=== PATIENT | male | born 1950 | race African-American/Black ===

== ENCOUNTER 2017-10-15 23:34 | Inpatient (IN) | payer MEDICARE, OTHER ==
[~2017-10-15] VITALS: Ht 170.2 cm; Wt 98.9 kg
[~2017-10-15 23:34] MED LIST: ASPIR 8181 MG ORAL; DILANTIN; DOCUSATE SODIU100 MG ORAL; FAMOTIDINE; LAMOTRIGINE; LOSARTAN; MONTELUKAST; SEROQUEL; SIMVASTATIN; TRAMADOL; VICODIN 5-5001 EACH ORAL
[2017-10-16] MEDS ORDERED: Albuterol ud Inhalation HHN ONE
[2017-10-16] MEDS ORDERED: Aspirin Baby 81mg ORAL ONE
[2017-10-16 00:44] LABS: BASOPHILS % (AUTO) 1.6 % (0.0-2.0); HEMATOCRIT 38.6 % (42.0-52.0); HEMOGLOBIN 12.9 G/DL (14.2-18.0); LYMPHOCYTES % (AUTO) 52.3 % (20.0-45.0); MEAN CORPUSCULAR VOLUME 91 FL (80-99); MONOCYTES % (AUTO) 11.5 % (1.0-10.0); NEUTROPHILS % (AUTO) 30.6 % (45.0-75.0); PLATELET COUNT 204 K/UL (150-450); RED BLOOD COUNT 4.23 M/UL (4.70-6.10); RED CELL DISTRIBUTION WIDTH 14.9 % (11.6-14.8); WHITE BLOOD COUNT 4.6 K/UL (4.8-10.8)
[2017-10-16 00:58] LABS: ANION GAP 11 mmol/L (5-15); BLOOD UREA NITROGEN 8 mg/dL (7-18); CALCIUM 8.5 MG/DL (8.5-10.1); CARBON DIOXIDE 23 MMOL/L (21-32); CHLORIDE 107 MMOL/L (98-107); CREATININE 1.1 MG/DL (0.55-1.30); POTASSIUM 3.3 MMOL/L (3.5-5.1); SODIUM 141 MMOL/L (136-145)
[2017-10-16 01:11] LABS: ALANINE AMINOTRANSFERASE 15 U/L (12-78); ALBUMIN 2.9 G/DL (3.4-5.0); ALBUMIN/GLOBULIN RATIO 0.7 (1.0-2.7); ALKALINE PHOSPHATASE 55 U/L (46-116); ASPARTATE AMINO TRANSFERASE 19 U/L (15-37); BILIRUBIN,TOTAL 0.2 MG/DL (0.2-1.0); CKMB 0.5 NG/ML (0.0-3.6); CREATINE KINASE 157 U/L (26-308)
[2017-10-16] MEDS ORDERED: Albuterol/Ipratropium 3ml neb HHN ONE (01:30)
[2017-10-16] MEDS ORDERED: Solu-MEDROL 125mg Inj IVP ONE (01:30)
[2017-10-16 03:11] VITALS: BP 115/61
[2017-10-16 04:00] VITALS: BP 113/86
[2017-10-16] MEDS: Solu-MEDROL 40mg Inj IVP SCH ×3 (05:33→21:05)
--- NOTE | 2017-10-16 05:34 | Emergency Room Report ---
History of Present Illness General Chief Complaint: Dyspnea/Respdistress Source: Patient Present Illness HPI Patient is a 67-year-old male brought in by EMS after increased difficulty breathing. Patient prior history of asthma. He reports having increased nonproductive cough. He had been given breathing treatment by EMS. Patient reported having gradually worsening symptoms. Patient had prior history of seizure disorder as well. The patient reports being compliant with his Dilantin as well as Lamictal. He denied recent seizure. The patient denies any chest pain. Allergies: Coded Allergies: No Known Allergies (Verified , 04/30/06) Patient History Past Medical History: see triage record Reviewed Nursing Documentation: PMH: Agreed; PSxH: Agreed Nursing Documentation-PMH Hx Cardiac Problems: Yes - HIGH CHOLESTEROL Hx Hypertension: Yes Hx Asthma: Yes Hx Cancer: Yes Hx Seizures: Yes Hx Headaches: Yes Review of Systems All Other Systems: limited - by poor historian Physical Exam Vital Signs Date Time Temp Pulse Resp B/P (MAP) Pulse Ox O2 Delivery O2 Flow Rate FiO2 10/15/17 23:34 98.5 80 14 115/61 98 98.4 10/16/17 00:30 Room Air Sp02 EP Interpretation: reviewed, normal General Appearance: normal inspection, alert, mild distress Head: atraumatic ENT: normal ENT inspection, hearing grossly normal, normal voice Neck: normal inspection, full range of motion, supple, no bony tend Respiratory: no retraction, wheezing, expiration - prolonged expiration Cardiovascular #1: regular rate, rhythm, no edema Gastrointestinal: normal inspection, normal bowel sounds, non tender, soft, no guarding, no hernia Genitourinary: no CVA tenderness Musculoskeletal: normal inspection, back normal, normal range of motion Neurologic: normal inspection, alert, oriented x3, responsive, news broadcaster III-XII nml as tested, speech normal Psychiatric: normal inspection, judgement/insight normal, mood/affect normal Skin: normal inspection, normal color, no rash Medical Decision Making Diagnostic Impression: Primary Impression: Asthma exacerbation Additional Impression: Seizure disorder ER Course Patient presented for shortness of breath. Differential included but was not limited to anemia, pneumonia, pneumothorax, myocardial infarction, pericardial effusion, congestive heart failure, acidosis. Because of complexity of patient' s case laboratory testing and imaging studies were ordered. Laboratory studies were unremarkable. The patient was given IV steroids as well as breathing treatments. Chest x-ray one view interpreted by me showed cardiomegaly without evident infiltrate. EKG interpreted by me showed normal sinus rhythm without acute ST or T wave changes.Dr. Himanshu Jacobson was contacted for inpatient management due to continued shortness of breath. Labs Test 10/16/17 00:28 White Blood Count 4.6 K/UL (4.8-10.8) Red Blood Count 4.23 M/UL (4.70-6.10) Hemoglobin 12.9 G/DL (14.2-18.0) Hematocrit 38.6 % (42.0-52.0) Mean Corpuscular Volume 91 FL (80-99) Mean Corpuscular Hemoglobin 30.4 PG (27.0-31.0) Mean Corpuscular Hemoglobin Concent 33.4 G/DL (32.0-36.0) Red Cell Distribution Width 14.9 % (11.6-14.8) Platelet Count 204 K/UL (150-450) Mean Platelet Volume 5.0 FL (6.5-10.1) Neutrophils (%) (Auto) 30.6 % (45.0-75.0) Lymphocytes (%) (Auto) 52.3 % (20.0-45.0) Monocytes (%) (Auto) 11.5 % (1.0-10.0) Eosinophils (%) (Auto) 4.0 % (0.0-3.0) Basophils (%) (Auto) 1.6 % (0.0-2.0) Sodium Level 141 MMOL/L (136-145) Potassium Level 3.3 MMOL/L (3.5-5.1) Chloride Level 107 MMOL/L (98-107) Carbon Dioxide Level 23 MMOL/L (21-32) Anion Gap 11 mmol/L (5-15) Blood Urea Nitrogen 8 mg/dL (7-18) Creatinine 1.1 MG/DL (0.55-1.30) Estimat Glomerular Filtration Rate > 60 mL/min (>60) Glucose Level 99 MG/DL (74-106) Calcium Level 8.5 MG/DL (8.5-10.1) Total Bilirubin 0.2 MG/DL (0.2-1.0) Aspartate Amino Transf (AST/SGOT) 19 U/L (15-37) Alanine Aminotransferase (ALT/SGPT) 15 U/L (12-78) Alkaline Phosphatase 55 U/L (46-116) Total Creatine Kinase 157 U/L (26-308) Creatine Kinase MB 0.5 NG/ML (0.0-3.6) Creatine Kinase MB Relative Index 0.3 Troponin I 0.004 ng/mL (0.000-0.056) Total Protein 6.8 G/DL (6.4-8.2) Albumin 2.9 G/DL (3.4-5.0) Globulin 3.9 g/dL Albumin/Globulin Ratio 0.7 (1.0-2.7) Urine Opiates Screen Negative (NEGATIVE) Urine Barbiturates Screen Negative (NEGATIVE) Phencyclidine (PCP) Screen Negative (NEGATIVE) Urine Amphetamines Screen Negative (NEGATIVE) Urine Benzodiazepines Screen Negative (NEGATIVE) Urine Cocaine Screen Negative (NEGATIVE) Urine Marijuana (THC) Screen Negative (NEGATIVE) Last Vital Signs Date Time Temp Pulse Resp B/P (MAP) Pulse Ox O2 Delivery O2 Flow Rate FiO2 10/16/17 03:53 98.4 89 18 115/61 100 Room Air 98.4 Status: unchanged Disposition: ADMITTED INPATIENT Condition: Stable Referrals: NON PHYSICIAN (PCP) Henrry Stephens Oct 16, 2017 05:34
[2017-10-16] MEDS: Albuterol/Ipratropium 3ml neb HHN SCH ×5 (07:14→22:22)
[2017-10-16 08:00] VITALS: BP 148/75
--- NOTE | 2017-10-16 09:50 | Diagnostic Imaging Report ---
Indication: Shortness of breath Technique: XRAY Chest 1v Comparison: 03/22/2013 Findings: Cardiac silhouette appears prominent. Atherosclerotic changes are seen. There is mild pulmonary vascular congestion. Atelectasis is noted in the lung bases. Degenerative changes of the spine are seen. Impression: Mild pulmonary vascular congestion. Lung base atelectasis. Clinical correlation/follow-up recommended.
[2017-10-16 10:53] LABS: BASOPHILS % (AUTO) 0.9 % (0.0-2.0); EOSINOPHILS % (AUTO) 0.2 % (0.0-3.0); HEMATOCRIT 46.6 % (42.0-52.0); HEMOGLOBIN 15.6 G/DL (14.2-18.0); MEAN CORPUSCULAR VOLUME 92 FL (80-99); MONOCYTES % (AUTO) 3.3 % (1.0-10.0); NEUTROPHILS % (AUTO) 74.6 % (45.0-75.0); PLATELET COUNT 236 K/UL (150-450); RED BLOOD COUNT 5.05 M/UL (4.70-6.10); RED CELL DISTRIBUTION WIDTH 14.7 % (11.6-14.8); WHITE BLOOD COUNT 4.9 K/UL (4.8-10.8)
[2017-10-16 11:10] LABS: ALANINE AMINOTRANSFERASE 18 U/L (12-78); ALBUMIN 3.7 G/DL (3.4-5.0); ALBUMIN/GLOBULIN RATIO 0.8 (1.0-2.7); ALKALINE PHOSPHATASE 69 U/L (46-116); ANION GAP 10 mmol/L (5-15); ASPARTATE AMINO TRANSFERASE 21 U/L (15-37); BILIRUBIN,TOTAL 0.3 MG/DL (0.2-1.0); BLOOD UREA NITROGEN 10 mg/dL (7-18); CALCIUM 9.8 MG/DL (8.5-10.1); CARBON DIOXIDE 27 MMOL/L (21-32); CHLORIDE 102 MMOL/L (98-107); CREATININE 1.3 MG/DL (0.55-1.30); POTASSIUM 4.2 MMOL/L (3.5-5.1); SODIUM 139 MMOL/L (136-145)
[2017-10-16 12:00] VITALS: BP 120/70
[2017-10-16 16:00] VITALS: BP 128/88
[2017-10-16] MEDS ORDERED: Phenytoin Susp 100mg/4ml NG SCH (16:00)
[2017-10-16] MEDS: Montelukast 10mg tablet ORAL SCH (16:04)
--- NOTE | 2017-10-16 18:00 | Consultation ---
DATE OF CONSULTATION: 10/16/2017 PULMONARY CONSULTATION REASON FOR CONSULTATION: Asthma. HISTORY OF PRESENT ILLNESS: The patient is a 67-year-old male brought in with increasing difficulty breathing. The patient with history of asthma. The patient with history of cough which is mostly nonproductive. The patient noted worsening of symptoms, seen and evaluated in the emergency room. In the emergency room, the patient was given breathing treatments as well as IV Solu-Medrol. The patient did undergo imaging and now admitted for further care and management and stabilization. I was asked to evaluate and recommend further. PAST MEDICAL HISTORY: Notable for hypertension, asthma, seizures, headaches. MEDICATIONS: Reviewed. ALLERGIES: Reviewed. SOCIAL HISTORY: Currently nonsmoker and nondrinker. The patient is otherwise independent. The patient is retired. REVIEW OF SYSTEMS: Otherwise negative with the exception of the above. PHYSICAL EXAMINATION: GENERAL: A well-developed male. The patient is in no acute distress. VITAL SIGNS: Blood pressure 148/75, O2 saturations 93% on room air, respiratory rate 18, temperature 97 degrees. HEENT: Negative. Extraocular movements grossly intact NECK: Supple. LUNGS: With moderate breath sounds, symmetric, wheezes scattered. CARDIAC: S1 and S2. Regular rate and rhythm without murmurs, rubs, gallops. ABDOMEN: Soft, nontender, nondistended. EXTREMITIES: No cyanosis, clubbing, or edema. NEUROLOGIC: Grossly nonfocal. LABORATORY DATA: Reviewed. White count 4.6, hemoglobin 12.9. Chemistry is noted notable for potassium of 2.3. Albumin 2.9. IMPRESSION: 1. Asthma with acute exacerbation. 2. Shortness of breath. 3. History of seizures. 4. History of headaches. 5. Possible underlying respiratory infection. RECOMMENDATIONS: I agree with management. Albuterol for now. DVT prophylaxis. IV Solu-Medrol. Monitor clinically. Discharge on combination of inhaled steroids and long-acting bronchodilator as well as prednisone taper. Once improved with outpatient followup, pulmonary function testing and further evaluation for allergic triggers. Care discussed and reviewed with the patient. I will follow clinically. Francois Sheehan M.D. : Rosa JOB#: [id number] CC: ALIA
[2017-10-16] MEDS: Tums 500mg ORAL PRN ×2 (18:18→20:46)
[2017-10-16 20:00] VITALS: BP 133/88
--- NOTE | 2017-10-16 20:15 | Consultation ---
DATE OF CONSULTATION: 10/16/2017 CARDIOLOGY CONSULTATION CONSULTING PHYSICIAN: Himanshu Jacobson M.D. REQUESTING PHYSICIAN: Keon Bridges M.D. REASON FOR CONSULTATION: Shortness of breath and chest pain. HISTORY OF PRESENT ILLNESS: This is a 67-year-old male. He presented to the emergency room by paramedics with difficulty breathing, chest tightness, and abdominal fullness. He has had increasing nonproductive cough over the past day or two and has increased the use of his respiratory treatments at home. He has albuterol and ipratropium that he uses by nebulizer. He also has a CPAP machine. The patient has not had any fevers or chills, nausea, vomiting, or change in bowel habits. He does have a seizure disorder. He takes Dilantin and Lamictal and notes being compliant. He has not had chest pain, but notes tightness in his chest with breathing. PAST MEDICAL HISTORY: Hypertension, chronic obstructive pulmonary disease, seizure disorder, history of prostate cancer, hyperlipidemia, and sleep disorder. MEDICATIONS: Reviewed and reconciled. ALLERGIES: None. FAMILY HISTORY: Noncontributory. REVIEW OF SYSTEMS: No fevers or chills. No history of blood clots in the legs. No history of positive PPD or tuberculosis exposure. No history of stroke. He does have a seizure disorder, but no recent seizures noted. No nausea or vomiting. No change in bowel habits. No history of diabetes or thyroid disorder. PHYSICAL EXAMINATION: VITAL SIGNS: Blood pressure 115/61, pulse 80, respirations 14, afebrile, and 98% oxygen saturation. NECK: Supple. LUNGS: With diminished breath sounds. Scattered expiratory wheezes and rales. No subcostal retractions. No accessory muscle use. CARDIAC: Regular rhythm and rate. Normal S1, S2 with no murmur, rub, or gallop. ABDOMEN: Distended, but soft. No guarding or rebound. No CVA tenderness. EXTREMITIES: No clubbing, cyanosis, or edema. Capillary refill is good. NEUROLOGIC: Nonfocal with no tremor. LABORATORY DATA: White count 4.6 and hemoglobin 12.9. BUN 11 and creatinine 1.1. Sodium 141, potassium 3.3, and bicarbonate 23. Troponin is 0.004 CK is 157. Tox screen is negative. IMPRESSION: 1. Acute respiratory insufficiency. 2. Chronic obstructive pulmonary disease exacerbation. 3. Acute bronchospasm. 4. Pleuritic chest pain. 5. History of hypertension. 6. Hypokalemia. 7. Acute myocardial ischemia. 8. Seizure disorder. PLAN: 1. Cardiac monitoring. 2. Replace potassium. 3. Inhaled bronchodilators. 4. Intravenous steroids. 5. Hold antibiotics. 6. DVT and stress ulcer prophylaxes. 7. Check Dilantin level and re-dose accordingly. 8. We will discuss with primary care physician and band scroll saw operator further plan of care. 9. No additional cardiovascular workup presently planned other than echocardiogram for assessment of PA systolic pressure. Himanshu Jacobson M.D. DR: TACO JOB#: [id number] CC:
[2017-10-16] MEDS: Phenytoin Susp 100mg/4ml NG SCH (20:45)
[2017-10-16] MEDS: Losartan 50mg tab ORAL SCH (20:45)
[2017-10-16] MEDS: Heparin 5000 units/ml inj SUBQ SCH (20:48)
[2017-10-17] VITALS: BP 146/95
[2017-10-17] MEDS: Albuterol/Ipratropium 3ml neb HHN SCH ×6 (02:59→23:07)
[2017-10-17 04:00] VITALS: BP 139/69
[2017-10-17] MEDS: Solu-MEDROL 40mg Inj IVP SCH ×2 (05:59→14:46)
[2017-10-17] MEDS: Tums 500mg ORAL PRN ×3 (07:36→20:36)
[2017-10-17 08:00] VITALS: BP 125/75
[2017-10-17] MEDS: Losartan 50mg tab ORAL SCH ×2 (08:39→20:36)
[2017-10-17] MEDS: Phenytoin Susp 100mg/4ml NG SCH (08:39)
[2017-10-17] MEDS: Heparin 5000 units/ml inj SUBQ SCH ×2 (08:44→20:40)
[2017-10-17] MEDS ORDERED: guaiFENesin DM 100mg/5ml ORAL PRN (10:00)
--- NOTE | 2017-10-17 11:49 | Pulmonology Progress Note ---
Assessment/Plan Assessment/Plan 1. Asthma with acute exacerbation. 2. Shortness of breath. 3. History of seizures. 4. History of headaches. PLAN Continue same for now IV Solu-Medrol as is and plan to taper in a.m. Nebulized therapy as outlined Oxygen therapy as needed Ambulate as able We will start inhaled steroids as well as long-acting bronchodilators Plan for outpatient follow-up including pulmonary function testing and allergy testing impression, plan, and exam edited and reviewed in detail care discussed with RN Subjective Allergies: Coded Allergies: No Known Allergies (Verified , 04/30/06) Subjective Care note and reviewed Patient seems to be a bit better Objective Last 24 Hour Vital Signs Date Time Temp Pulse Resp B/P (MAP) Pulse Ox O2 Delivery O2 Flow Rate FiO2 10/17/17 11:29 90 20 95 Nasal Cannula 2.0 28 10/17/17 08:39 125/75 10/17/17 08:00 104 10/17/17 08:00 97.9 104 20 125/75 91 Nasal Cannula 2.0 97.9 10/17/17 06:58 103 20 94 Room Air 10/17/17 06:55 Room Air 21 10/17/17 06:55 94 Room Air 21 10/17/17 06:52 91 20 92 Room Air 21 10/17/17 04:00 86 10/17/17 04:00 97.9 92 20 139/69 95 Nasal Cannula 2.0 97.9 10/17/17 03:10 90 18 97 Room Air 10/17/17 02:59 91 22 93 Room Air 21 10/17/17 00:00 82 10/17/17 00:00 97.7 81 20 146/95 90 Nasal Cannula 2.0 97.7 10/16/17 22:32 88 18 97 Room Air 10/16/17 22:22 85 22 94 Room Air 21 10/16/17 20:45 133/88 10/16/17 20:15 Nasal Cannula 10/16/17 20:15 Room Air 10/16/17 20:15 Nasal Cannula 2.0 28 10/16/17 20:15 95 Nasal Cannula 2.0 28 10/16/17 20:00 97.3 93 20 133/88 95 Nasal Cannula 2.0 97.3 10/16/17 20:00 91 10/16/17 16:00 97.2 94 18 128/88 95 Nasal Cannula 2.0 97.2 10/16/17 16:00 92 10/16/17 14:55 96 Nasal Cannula 2.0 28 10/16/17 14:55 85 18 97 Nasal Cannula 2.0 28 10/16/17 14:55 Nasal Cannula 2.0 28 10/16/17 14:45 83 18 92 Room Air 21 10/16/17 12:00 84 10/16/17 12:00 97.0 81 20 120/70 98 Room Air 97.0 Intake and Output 10/16/17 10/17/17 19:00 07:00 Intake Total 480 ml 500 ml Output Total 100 ml Balance 480 ml 400 ml Intake Oral 480 ml 500 ml Output Emesis 100 ml # Voids 3 3 Objective Well-developed well-nourished male No acute distress No jugular venous distention Lungs with reduced air entry with occasional wheeze Cardiac exam with normal S1-S2 regular rate rhythm without murmurs rubs gallops Exam on the abdomen is overall benign no normoactive bowel sounds No cyanosis clubbing or edema Neurologically grossly nonfocal and alert Current Medications Medications (Trade) Dose Ordered Sig/Sinai Route PRN Reason Start Time Stop Time Status Last Admin Dose Admin Albuterol/ Ipratropium (Albuterol/ Ipratropium) 3 ml Q4HRT HHN 10/16/17 07:00 10/21/17 06:59 10/17/17 11:29 Calcium Carbonate (Tums) 500 mg THREE TIMES A DAY PRN ORAL HEARTBURN 10/16/17 10:30 11/15/17 10:29 10/17/17 07:36 Guaifenesin/ Dextromethorphan (Robitussin DM) 10 ml Q4H PRN ORAL For Cough 10/17/17 10:00 11/16/17 09:59 10/17/17 09:40 Heparin Sodium (Porcine) (Heparin 5000 units/ml) 5,000 units EVERY 12 HOURS SUBQ 10/16/17 21:00 11/15/17 20:59 10/17/17 08:44 Losartan Potassium (Cozaar) 50 mg EVERY 12 HOURS ORAL 10/16/17 21:00 11/15/17 20:59 10/17/17 08:39 Methylprednisolone Sodium Succinate (Solu-MEDROL) 40 mg EVERY 8 HOURS IVP 10/16/17 06:00 11/15/17 05:59 10/17/17 05:59 Montelukast Sodium (Singulair) 10 mg QPM ORAL 10/16/17 16:30 11/15/17 16:29 10/16/17 16:04 Ondansetron HCl (Zofran) 4 mg Q4H PRN IVP Nausea & Vomiting 10/17/17 02:00 11/16/17 01:59 10/17/17 07:44 Pantoprazole (Protonix) 40 mg DAILY ORAL 10/17/17 10:00 11/16/17 09:59 10/17/17 10:19 Phenytoin (Dilantin) 300 mg EVERY 12 HOURS NG 10/16/17 21:00 11/15/17 20:59 10/17/17 08:39 Quetiapine Fumarate (SEROquel) 150 mg BEDTIME ORAL 10/16/17 21:00 11/15/17 20:59 10/16/17 20:46 ASHLEY LEON Oct 17, 2017 11:49
[2017-10-17 12:00] VITALS: BP 137/86
[2017-10-17 16:00] VITALS: BP 128/81
[2017-10-17] MEDS: Montelukast 10mg tablet ORAL SCH (17:09)
--- NOTE | 2017-10-17 18:15 | History and Physical Report ---
DATE OF ADMISSION: 10/16/2017 CHIEF COMPLAINT: Chest pain and shortness of breath. HISTORY OF PRESENT ILLNESS: The patient is a pleasant 67-year-old male. He has history of prediabetes, hypertension, asthma/COPD, and ischemic cardiomyopathy. He presented with complaints of chest pain. According to the patient, he was well. On the morning of admission, developed substernal chest pain with shortness of breath, presented to the emergency room. On evaluation there, his initial vital signs were stable. He was saturating well. Initial set of cardiac enzymes was negative. He was noted to be hypokalemic. Chest x-ray showed pulmonary vascular congestion. The patient was given a breathing treatment, a dose of aspirin, and a dose of intravenous steroids. He is now admitted for further evaluation and care. PAST MEDICAL HISTORY: As above. He has a history of seizure disorder. CURRENT MEDICATIONS: Reconciled and reviewed. ALLERGIES: None. SOCIAL HISTORY: Negative for alcohol or drugs. The patient is a prior smoker. FAMILY HISTORY: None. PHYSICAL EXAMINATION: VITAL SIGNS: Temperature 98 degrees, pulse 89, respirations 18, and blood pressure 151/61. GENERAL: The patient is well developed, no apparent distress. He is up in bed and speaking in full sentences. NECK: Supple. HEART: Regular rate and rhythm. LUNGS: Significant diminished breath sounds with scattered wheezes. ABDOMEN: Soft, nontender, and nondistended. EXTREMITIES: Without clubbing, cyanosis, or edema. LABORATORY DATA: The white count was 4, hemoglobin 15, hematocrit 46, platelet are 236,000. Sodium 139, potassium is 4.2, chloride 102, bicarbonate 27, BUN of 10, and creatinine is 1.3. Troponin was 0.004. ASSESSMENT: This is a pleasant male, admitted with complaints of shortness of breath. 1. Shortness of breath. 2. Congestive heart failure and chronic obstructive pulmonary disease exacerbation. 3. History of ischemic cardiomyopathy. 4. Possible unstable angina. 5. Hypertension. 6. Seizure disorder. PLAN: 1. Intravenous steroids. 2. Respiratory treatments. 3. Supplemental oxygen. 4. P.r.n. diuresis. 5. Continue seizure medications. 6. The patient's family are bringing his current medications, so that could be reviewed. Keon Bridges M.D. DR: Eber JOB#: [id number] CC:
[2017-10-17] MEDS: Advair 250/50 Inhaler - 14 dose INH SCH (19:21)
[2017-10-17 20:00] VITALS: BP 135/86
--- NOTE | 2017-10-17 20:15 | Progress Note ---
DATE: 10/17/2017 CARDIOLOGY PROGRESS NOTE SUBJECTIVE: The patient continues to complain of severe mid epigastric and chest pain after meals. His medication regimen was reviewed and his medication order was updated. The patient has been on nonsteroidal drugs at home. OBJECTIVE: VITAL SIGNS: Blood pressure 128/81, heart rate 101, respiratory rate 20, afebrile, and oxygen saturation 93% on 2 liters nasal cannula. LUNGS: Diminished breath sounds. Few rhonchi. No wheezing. CARDIAC: Regular rhythm and rate. Normal S1, S2 with a fourth heart sound. ABDOMEN: Distended, but soft. Mild midepigastric tenderness. EXTREMITIES: No edema. LABORATORY DATA: White count 4.9, hemoglobin 15.6, potassium 4.2, BUN 10, creatinine 1.3. Magnesium 2.2. Liver function tests all within normal limits. Albumin 3.7. TSH 0.8. IMPRESSION: 1. Chronic obstructive pulmonary disease exacerbation, improving. 2. Noncardiac chest pain. 3. Mid epigastric pain, possibly peptic ulcer disease. Consider hepatobiliary process. 4. Low likelihood for an acute coronary insufficiency. 5. Seizure disorder. 6. Hypertension, controlled. PLAN: Abdominal ultrasound. Gastrointestinal consultation. H2 blockers and antacids. Review EKG. Steroid taper. Repeat troponin level. Further recommendations will follow. Himanshu Jacobson M.D. DR: Tyler JOB#: [id number] CC:
[2017-10-18] MEDS: Albuterol/Ipratropium 3ml neb HHN SCH ×6 (03:00→23:05)
[2017-10-18 04:00] VITALS: BP 143/85
--- NOTE | 2017-10-18 07:28 | General Progress Note ---
Assessment/Plan Problem List: (1) Unstable angina ICD Codes: I20.0 - Unstable angina SNOMED: 8801991, 927700122 (2) Abdominal pain ICD Codes: R10.9 - Unspecified abdominal pain SNOMED: 67193256 (3) Dyspnea ICD Codes: R06.00 - Dyspnea, unspecified SNOMED: 506120929 (4) Asthma exacerbation ICD Codes: J45.901 - Unspecified asthma with (acute) exacerbation SNOMED: 413289598 (5) Shortness of breath ICD Codes: R06.02 - Shortness of breath SNOMED: 366904548 (6) Seizure disorder Status: stable, progressing Assessment/Plan iv steroids resp rx check echo await abd [place] psych eval called. PPi rx Subjective ROS Limited/Unobtainable: No Constitutional: Reports: malaise, weakness HEENT: Reports: no symptoms Cardiovascular: Reports: no symptoms Respiratory: Reports: cough, shortness of breath Gastrointestinal/Abdominal: Reports: abdominal pain Genitourinary: Reports: no symptoms Neurologic/Psychiatric: Reports: no symptoms Endocrine: Reports: no symptoms Hematologic/Lymphatic: Reports: no symptoms Allergies: Coded Allergies: No Known Allergies (Verified , 04/30/06) All Systems: reviewed and negative except above Subjective above noted. pt has been verbalizing violence with his gun. +abd pain. no fever or chills. Objective Last 24 Hour Vital Signs Date Time Temp Pulse Resp B/P (MAP) Pulse Ox O2 Delivery O2 Flow Rate FiO2 10/18/17 04:00 97.3 85 20 143/85 96 Nasal Cannula 2.0 97.3 10/18/17 04:00 86 10/18/17 03:07 Nasal Cannula 10/18/17 03:07 Nasal Cannula 10/18/17 00:00 87 10/17/17 23:15 87 20 96 Nasal Cannula 2.0 28 10/17/17 23:07 84 20 94 Nasal Cannula 2.0 28 10/17/17 20:36 135/86 10/17/17 20:00 95 10/17/17 20:00 97.9 99 20 135/86 94 Room Air 97.9 10/17/17 19:31 89 20 96 Nasal Cannula 2.0 28 10/17/17 19:29 88 20 94 Nasal Cannula 2.0 28 10/17/17 19:28 87 20 94 Nasal Cannula 2.0 28 10/17/17 19:20 Nasal Cannula 2.0 28 10/17/17 19:20 87 20 93 Nasal Cannula 2.0 28 10/17/17 19:19 93 Nasal Cannula 2.0 28 10/17/17 16:00 97.9 101 20 128/81 93 Room Air 97.9 10/17/17 16:00 83 10/17/17 15:24 88 20 96 Nasal Cannula 2.0 28 10/17/17 15:16 88 20 94 Nasal Cannula 2.0 28 10/17/17 12:00 75 10/17/17 12:00 98.3 91 20 137/86 92 Nasal Cannula 2.0 98.3 10/17/17 11:40 90 20 95 Nasal Cannula 2.0 10/17/17 11:29 90 20 95 Nasal Cannula 2.0 10/17/17 08:39 125/75 10/17/17 08:00 104 10/17/17 08:00 97.9 104 20 125/75 91 Nasal Cannula 2.0 97.9 Intake and Output 10/17/17 10/18/17 19:00 07:00 Intake Total 510 ml Balance 510 ml Intake Oral 510 ml Height (Feet): 5 Height (Inches): 7.00 Weight (Pounds): 218 General Appearance: WD/WN, confused Neck: supple Cardiovascular: normal rate, regular rhythm Respiratory/Chest: chest wall non-tender, lungs clear, normal breath sounds, no respiratory distress Abdomen: normal bowel sounds, non tender, soft, no organomegaly Edema: no edema noted Arm (L), no edema noted Arm (R), no edema noted Leg (L), no edema noted Leg (R), no edema noted Pedal (L), no edema noted Pedal (R), no edema noted Generalized ARIELA BURNETT Oct 18, 2017 07:28
--- NOTE | 2017-10-18 07:55 | Pulmonology Progress Note ---
Assessment/Plan Assessment/Plan 1. Asthma with acute exacerbation. 2. Shortness of breath. 3. History of seizures. 4. History of headaches. PLAN Continue same for now dc Solu-Medrol Nebulized therapy as outlined Oxygen therapy as needed Ambulate as able inhaled steroids as well as long-acting bronchodilators Plan for outpatient follow-up including pulmonary function testing and allergy testing impression, plan, and exam edited and reviewed in detail care discussed with RN Subjective Allergies: Coded Allergies: No Known Allergies (Verified , 04/30/06) Subjective Care note and reviewed for procedure today Patient seems stable Objective Last 24 Hour Vital Signs Date Time Temp Pulse Resp B/P (MAP) Pulse Ox O2 Delivery O2 Flow Rate FiO2 10/18/17 04:00 97.3 85 20 143/85 96 Nasal Cannula 2.0 97.3 10/18/17 04:00 86 10/18/17 03:07 Nasal Cannula 10/18/17 03:07 Nasal Cannula 10/18/17 00:00 87 10/17/17 23:15 87 20 96 Nasal Cannula 2.0 28 10/17/17 23:07 84 20 94 Nasal Cannula 2.0 28 10/17/17 20:36 135/86 10/17/17 20:00 95 10/17/17 20:00 97.9 99 20 135/86 94 Room Air 97.9 10/17/17 19:31 89 20 96 Nasal Cannula 2.0 28 10/17/17 19:29 88 20 94 Nasal Cannula 2.0 28 10/17/17 19:28 87 20 94 Nasal Cannula 2.0 28 10/17/17 19:20 Nasal Cannula 2.0 28 10/17/17 19:20 87 20 93 Nasal Cannula 2.0 28 10/17/17 19:19 93 Nasal Cannula 2.0 28 10/17/17 16:00 97.9 101 20 128/81 93 Room Air 97.9 10/17/17 16:00 83 10/17/17 15:24 88 20 96 Nasal Cannula 2.0 28 10/17/17 15:16 88 20 94 Nasal Cannula 2.0 28 10/17/17 12:00 75 10/17/17 12:00 98.3 91 20 137/86 92 Nasal Cannula 2.0 98.3 10/17/17 11:40 90 20 95 Nasal Cannula 2.0 28 10/17/17 11:29 90 20 95 Nasal Cannula 2.0 28 10/17/17 08:39 125/75 10/17/17 08:00 104 10/17/17 08:00 97.9 104 20 125/75 91 Nasal Cannula 2.0 97.9 Intake and Output 10/17/17 10/18/17 19:00 07:00 Intake Total 510 ml 400 ml Balance 510 ml 400 ml Intake Oral 510 ml 400 ml Objective Well-developed well-nourished male No acute distress No jugular venous distention Lungs with reduced air entry with occasional wheeze Cardiac exam with normal S1-S2 regular rate rhythm without murmurs rubs gallops Exam on the abdomen is overall benign no normoactive bowel sounds No cyanosis clubbing or edema Neurologically grossly nonfocal and alert Current Medications Medications (Trade) Dose Ordered Sig/Sinai Route PRN Reason Start Time Stop Time Status Last Admin Dose Admin Al Hydroxide/Mg Hydroxide (Mylanta) 30 ml BEFORE MEALS AND HS ORAL 10/17/17 16:30 11/16/17 16:29 10/18/17 05:49 Albuterol/ Ipratropium (Albuterol/ Ipratropium) 3 ml Q4HRT HHN 10/16/17 07:00 10/21/17 06:59 10/17/17 23:07 Aspirin (Ecotrin) 81 mg DAILY ORAL 10/18/17 09:00 11/17/17 08:59 Calcium Carbonate (Tums) 500 mg THREE TIMES A DAY PRN ORAL HEARTBURN 10/16/17 10:30 11/15/17 10:29 10/17/17 20:36 Famotidine (Pepcid) 20 mg BID ORAL 10/17/17 18:00 11/16/17 17:59 10/17/17 18:55 Gabapentin (Neurontin) 300 mg BID ORAL 10/17/17 18:00 11/16/17 17:59 10/17/17 18:55 Guaifenesin/ Dextromethorphan (Robitussin DM) 10 ml Q4H PRN ORAL For Cough 10/17/17 10:00 11/16/17 09:59 10/17/17 09:40 Heparin Sodium (Porcine) (Heparin 5000 units/ml) 5,000 units EVERY 12 HOURS SUBQ 10/16/17 21:00 11/15/17 20:59 4/22/18 20:40 Levetiracetam (Keppra) 750 mg Q12HR ORAL 10/17/17 21:00 11/16/17 20:59 10/17/17 20:36 Losartan Potassium (Cozaar) 50 mg EVERY 12 HOURS ORAL 10/16/17 21:00 11/15/17 20:59 10/17/17 20:36 Methylprednisolone Sodium Succinate (Solu-MEDROL) 40 mg DAILY IVP 10/18/17 09:00 11/17/17 08:59 Montelukast Sodium (Singulair) 10 mg QPM ORAL 10/16/17 16:30 11/15/17 16:29 10/17/17 17:09 Ondansetron HCl (Zofran) 4 mg Q4H PRN IVP Nausea & Vomiting 10/17/17 02:00 11/16/17 01:59 10/17/17 07:44 Pantoprazole (Protonix) 40 mg DAILY ORAL 10/17/17 10:00 11/16/17 09:59 10/17/17 10:19 Quetiapine Fumarate (SEROquel) 300 mg BEDTIME ORAL 10/17/17 21:00 11/16/17 20:59 10/17/17 20:37 Salmeterol Xinafoate/ Fluticasone (Advair 250/50 Diskus) 1 puffs BID INH 10/17/17 18:00 11/16/17 17:59 10/17/17 19:21 ASHLEY LEON Oct 18, 2017 07:55
[2017-10-18 08:00] VITALS: BP 115/87
[2017-10-18] MEDS: Aspirin EC 81mg tab ORAL SCH (08:41)
[2017-10-18] MEDS: Losartan 50mg tab ORAL SCH ×2 (08:43→20:53)
[2017-10-18] MEDS: Tums 500mg ORAL PRN (08:49)
[2017-10-18] MEDS: Heparin 5000 units/ml inj SUBQ SCH ×2 (08:51→20:52)
[2017-10-18] MEDS ORDERED: Solu-MEDROL 40mg Inj IVP SCH (09:00)
[2017-10-18] MEDS: Advair 250/50 Inhaler - 14 dose INH SCH ×2 (09:52→20:37)
[2017-10-18 10:53] LABS: ALANINE AMINOTRANSFERASE 22 U/L (12-78); ALBUMIN 3.5 G/DL (3.4-5.0); ALBUMIN/GLOBULIN RATIO 0.9 (1.0-2.7); ALKALINE PHOSPHATASE 59 U/L (46-116); ANION GAP 7 mmol/L (5-15); ASPARTATE AMINO TRANSFERASE 21 U/L (15-37); BILIRUBIN,TOTAL 0.4 MG/DL (0.2-1.0); BLOOD UREA NITROGEN 11 mg/dL (7-18); CALCIUM 9.7 MG/DL (8.5-10.1); CARBON DIOXIDE 30 MMOL/L (21-32); CHLORIDE 103 MMOL/L (98-107); CREATININE 1.2 MG/DL (0.55-1.30); POTASSIUM 4.2 MMOL/L (3.5-5.1); SODIUM 140 MMOL/L (136-145)
--- NOTE | 2017-10-18 11:15 | Progress Note ---
DATE: 10/18/2017 CARDIOLOGY PROGRESS NOTE SUBJECTIVE: The patient feels better today. Less abdominal pain. No shortness of breath. OBJECTIVE: VITAL SIGNS: Blood pressure 143/85, pulse 85, respirations 20, and oxygen saturation on 2 liters is 96%. HEENT: Oropharynx clear. NECK: Supple. No thrush. LUNGS: With diminished breath sounds. No wheezing. CARDIAC: Regular. Normal S1, S2. ABDOMEN: Soft. EXTREMITIES: No edema. IMPRESSION: 1. COPD exacerbation, improved. 2. Chest pain, noncardiac, rather it is pleuritic. 3. Peptic ulcer disease with abdominal pain and postprandial discomfort predominantly. 4. Hypertensive heart disease. 5. Seizure disorder. PLAN: EGD, abdominal ultrasound, off steroids, reassess antihypertensive therapy, may need additional titration of medications. Continue antiseizure therapy. Himanshu Jacobson M.D. DR: ANA JOB#: [id number] CC:
[2017-10-18 12:00] VITALS: BP 137/76
--- NOTE | 2017-10-18 13:54 | Consultation ---
History of Present Illness General Date patient seen: Oct 18, 2017 Chief Complaint: Dyspnea/Respdistress Present Illness HPI 67-year-old male with history of prediabetes, hypertension, asthma/COPD, bipolar d/o and ischemic cardiomyopathy. the pt has been labile and easily agitated. the pt was hostile and threatening over the weekend. Per Dr. Estrada, the pt's nurse reported to Dr. Estrada that the pt told staff "I want to shoot my with a gum." Then the charge nurse told me today that the pt told one of the nurses that He would go to [facility] and kill some staff there as they treated him with disrespect and threw him out. During the evaluation, the pt was somewhat uncooperative and agitated. He admitted that he was going to kill [facility] staff. He stated that he didn't have a gun. His nurse was in the room however she stated that she did not hear/listen to my conversation with the patient and she would not document. Then she stated she heard him saying, something along those line. The charge nurse was notified as well as the sw. Per charge the sw didn't see the necessity to contact [employer] nor the involving parties. Allergies: Coded Allergies: No Known Allergies (Verified , 04/30/06) Medication History Scheduled Aspirin* (Aspir 81*), 81 MG ORAL DAILY, (Reported) Docusate Sodium* (Docusate Sodium*), 200 MG ORAL TWICE A DAY, (Reported) Scheduled PRN Hydrocodone/Acetaminophen 5-500 (Vicodin 5-500), 1 TAB ORAL Q6H PRN, (Reported) Miscellaneous Medications [Dilantin], (Reported) [Famotidine], (Reported) [Lamotrigine], (Reported) [Losartan], (Reported) [Montelukast], (Reported) [Seroquel], (Reported) [Seroquel], (Reported) [Simvastatin], (Reported) [Tramadol], (Reported) Patient History Limited by: medical condition History Provided By: Patient, Medical Record, PMD Healthcare decision maker Resuscitation status Full Code Advanced Directive on File No Past Medical/Surgical History Past Medical/Surgical History: (1) Dyspnea (2) Asthma exacerbation (3) Seizure disorder (4) Unstable angina (5) Shortness of breath (6) Abdominal pain Family History Family History: (1) Dyspnea (2) Asthma exacerbation (3) Seizure disorder (4) Unstable angina (5) Shortness of breath (6) Abdominal pain Review of Systems Psychiatric: Reports: prior hx, anxiety, depressed feelings, emotional problems Physical Exam General Appearance: no apparent distress, alert Neurologic: alert, oriented x 3, responsive, depressed affect Last 24 Hour Vital Signs Date Time Temp Pulse Resp B/P (MAP) Pulse Ox O2 Delivery O2 Flow Rate FiO2 10/18/17 11:54 84 20 94 Nasal Cannula 2.0 28 10/18/17 11:44 88 18 95 Nasal Cannula 2.0 28 10/18/17 09:52 84 20 95 Nasal Cannula 2.0 28 10/18/17 09:52 84 20 95 Nasal Cannula 2.0 28 10/18/17 08:43 115/87 10/18/17 08:05 94 Nasal Cannula 2.0 28 10/18/17 08:05 86 18 94 Nasal Cannula 2.0 28 10/18/17 08:05 Nasal Cannula 2.0 28 10/18/17 08:05 86 20 95 Nasal Cannula 2.0 28 10/18/17 08:00 97.6 92 20 115/87 93 Room Air 97.6 10/18/17 08:00 76 10/18/17 04:00 97.3 85 20 143/85 96 Nasal Cannula 2.0 97.3 10/18/17 04:00 86 10/18/17 03:07 Nasal Cannula 10/18/17 03:07 Nasal Cannula 10/18/17 00:00 87 10/17/17 23:15 87 20 96 Nasal Cannula 2.0 28 10/17/17 23:07 84 20 94 Nasal Cannula 2.0 28 10/17/17 20:36 135/86 10/17/17 20:00 95 10/17/17 20:00 97.9 99 20 135/86 94 Room Air 97.9 10/17/17 19:31 89 20 96 Nasal Cannula 2.0 28 10/17/17 19:29 88 20 94 Nasal Cannula 2.0 28 10/17/17 19:28 87 20 94 Nasal Cannula 2.0 28 10/17/17 19:20 Nasal Cannula 2.0 28 10/17/17 19:20 87 20 93 Nasal Cannula 2.0 28 10/17/17 19:19 93 Nasal Cannula 2.0 28 10/17/17 16:00 97.9 101 20 128/81 93 Room Air 97.9 10/17/17 16:00 83 10/17/17 15:24 88 20 96 Nasal Cannula 2.0 28 10/17/17 15:16 88 20 94 Nasal Cannula 2.0 28 Intake and Output 10/17/17 10/18/17 19:00 07:00 Intake Total 510 ml 400 ml Balance 510 ml 400 ml Intake Oral 510 ml 400 ml Laboratory Tests Test 10/18/17 07:05 Sodium Level 140 MMOL/L (136-145) Potassium Level 4.2 MMOL/L (3.5-5.1) Chloride Level 103 MMOL/L (98-107) Carbon Dioxide Level 30 MMOL/L (21-32) Anion Gap 7 mmol/L (5-15) Blood Urea Nitrogen 11 mg/dL (7-18) Creatinine 1.2 MG/DL (0.55-1.30) Estimat Glomerular Filtration Rate > 60 mL/min (>60) Glucose Level 83 MG/DL (74-106) Calcium Level 9.7 MG/DL (8.5-10.1) Total Bilirubin 0.4 MG/DL (0.2-1.0) Aspartate Amino Transf (AST/SGOT) 21 U/L (15-37) Alanine Aminotransferase (ALT/SGPT) 22 U/L (12-78) Alkaline Phosphatase 59 U/L (46-116) Troponin I 0.000 ng/mL (0.000-0.056) Total Protein 7.5 G/DL (6.4-8.2) Albumin 3.5 G/DL (3.4-5.0) Globulin 4.0 g/dL Albumin/Globulin Ratio 0.9 (1.0-2.7) L Height (Feet): 5 Height (Inches): 7.00 Weight (Pounds): 218 Medications Current Medications Medications (Trade) Dose Ordered Sig/Sinai Route PRN Reason Start Time Stop Time Status Last Admin Dose Admin Al Hydroxide/Mg Hydroxide (Mylanta) 30 ml BEFORE MEALS AND HS ORAL 10/17/17 16:30 11/16/17 16:29 10/18/17 12:00 Albuterol/ Ipratropium (Albuterol/ Ipratropium) 3 ml Q4HRT HHN 4/21/18 07:00 10/21/17 06:59 10/18/17 11:44 Aspirin (Ecotrin) 81 mg DAILY ORAL 10/18/17 09:00 11/17/17 08:59 10/18/17 08:41 Calcium Carbonate (Tums) 500 mg THREE TIMES A DAY PRN ORAL HEARTBURN 10/16/17 10:30 11/15/17 10:29 10/18/17 08:49 Famotidine (Pepcid) 20 mg BID ORAL 10/17/17 18:00 11/16/17 17:59 10/18/17 08:41 Gabapentin (Neurontin) 300 mg BID ORAL 10/17/17 18:00 11/16/17 17:59 10/18/17 08:41 Guaifenesin/ Dextromethorphan (Robitussin DM) 10 ml Q4H PRN ORAL For Cough 10/17/17 10:00 11/16/17 09:59 10/17/17 09:40 Heparin Sodium (Porcine) (Heparin 5000 units/ml) 5,000 units EVERY 12 HOURS SUBQ 10/16/17 21:00 11/15/17 20:59 10/18/17 08:51 Levetiracetam (Keppra) 750 mg Q12HR ORAL 10/17/17 21:00 11/16/17 20:59 10/18/17 08:49 Losartan Potassium (Cozaar) 50 mg EVERY 12 HOURS ORAL 10/16/17 21:00 11/15/17 20:59 10/18/17 08:43 Montelukast Sodium (Singulair) 10 mg QPM ORAL 10/16/17 16:30 11/15/17 16:29 10/17/17 17:09 Ondansetron HCl (Zofran) 4 mg Q4H PRN IVP Nausea & Vomiting 10/17/17 02:00 11/16/17 01:59 10/17/17 07:44 Pantoprazole (Protonix) 40 mg DAILY ORAL 10/17/17 10:00 11/16/17 09:59 10/18/17 08:41 Prednisone (predniSONE) 20 mg DAILY ORAL 10/18/17 09:00 11/17/17 08:59 10/18/17 08:43 Quetiapine Fumarate (SEROquel) 300 mg BEDTIME ORAL 10/17/17 21:00 11/16/17 20:59 10/17/17 20:37 Salmeterol Xinafoate/ Fluticasone (Advair 250/50 Diskus) 1 puffs BID INH 10/17/17 18:00 11/16/17 17:59 10/18/17 09:52 Assessment/Plan Status: stable, progressing Assessment/Plan Bipolar d/o Not at imminent dts/dto -D/w Dr. Jacobson who was on the floor -Left a VM for and notified her -spoke to charge nurse again -ask the contact stephanie and [place] as well as Demetrius Sandoval M.D. Oct 18, 2017 13:54
--- NOTE | 2017-10-18 15:41 | Diagnostic Imaging Report ---
Indication: Abdominal pain Technique: Castillo-scale and duplex images of the upper abdomen were obtained Comparison: Findings: Gallbladder is unremarkable, without stones, wall thickening, nor pericholecystic fluid. It is incompletely distended Sonographic Barajas's sign is negative. Common bile duct measures 5 mm in diameter. No intrahepatic biliary ductal dilatation. Liver demonstrates diffusely increased echogenicity, consistent with diffuse hepatocellular disease, most likely fatty change. Portal vein and hepatic veins are patent. Pancreas is obscured by bowel gas. Spleen is unremarkable. Left kidney measures 11.2 cm in length. Right kidney measures 10.5 cm length. Both kidneys demonstrate normal echogenicity. There is no hydronephrosis. There are bilateral renal cysts . Abdominal aorta is obscured by bowel gas . Impression: Liver demonstrates diffusely increased echogenicity, consistent with diffuse hepatocellular disease, most likely fatty change. Negative for gallstones or dilated ducts Note inability to visualize the pancreas and abdominal aorta
[2017-10-18 16:00] VITALS: BP 142/86
[2017-10-18] MEDS: Montelukast 10mg tablet ORAL SCH (17:00)
[2017-10-18 20:00] VITALS: BP 155/72
--- NOTE | 2017-10-18 20:34 | General Progress Note ---
Assessment/Plan Assessment/Plan GI CONSULT ATSP for vomiting and pyrosis will schedule for EGD in am Thank you Shira Garrido MD Subjective Allergies: Coded Allergies: No Known Allergies (Verified , 04/30/06) Objective Last 24 Hour Vital Signs Date Time Temp Pulse Resp B/P (MAP) Pulse Ox O2 Delivery O2 Flow Rate FiO2 10/18/17 16:00 106 10/18/17 16:00 98.0 92 21 142/86 93 Room Air 98.0 10/18/17 15:26 87 18 95 Nasal Cannula 2.0 28 10/18/17 15:18 87 18 95 Nasal Cannula 2.0 28 10/18/17 12:00 83 10/18/17 12:00 98.0 93 18 137/76 93 Room Air 98.0 10/18/17 11:54 84 20 94 Nasal Cannula 2.0 28 10/18/17 11:44 88 18 95 Nasal Cannula 2.0 28 10/18/17 09:52 84 20 95 Nasal Cannula 2.0 28 10/18/17 09:52 84 20 95 Nasal Cannula 2.0 28 10/18/17 08:43 115/87 10/18/17 08:05 94 Nasal Cannula 2.0 28 10/18/17 08:05 86 18 94 Nasal Cannula 2.0 28 10/18/17 08:05 Nasal Cannula 2.0 28 10/18/17 08:05 86 20 95 Nasal Cannula 2.0 28 10/18/17 08:00 97.6 92 20 115/87 93 Room Air 97.6 10/18/17 08:00 76 10/18/17 04:00 97.3 85 20 143/85 96 Nasal Cannula 2.0 97.3 10/18/17 04:00 86 10/18/17 03:07 Nasal Cannula 10/18/17 03:07 Nasal Cannula 10/18/17 00:00 87 10/17/17 23:15 87 20 96 Nasal Cannula 2.0 28 10/17/17 23:07 84 20 94 Nasal Cannula 2.0 28 10/17/17 20:36 135/86 Intake and Output 10/17/17 10/18/17 19:00 07:00 Intake Total 510 ml 400 ml Balance 510 ml 400 ml Intake Oral 510 ml 400 ml Laboratory Tests 10/18/17 07:05: Sodium Level 140, Potassium Level 4.2, Chloride Level 103, Carbon Dioxide Level 30, Anion Gap 7, Blood Urea Nitrogen 11, Creatinine 1.2, Estimat Glomerular Filtration Rate > 60, Glucose Level 83, Calcium Level 9.7, Total Bilirubin 0.4, Aspartate Amino Transf (AST/SGOT) 21, Alanine Aminotransferase (ALT/SGPT) 22, Alkaline Phosphatase 59, Troponin I 0.000, Total Protein 7.5, Albumin 3.5, Globulin 4.0, Albumin/Globulin Ratio 0.9L Height (Feet): 5 Height (Inches): 7.00 Weight (Pounds): 218 SHIRA GARRIDO Oct 18, 2017 20:34
--- NOTE | 2017-10-18 22:45 | Consultation ---
DATE OF CONSULTATION: 10/18/2017 NOTE: "POOR AUDIO QUALITY" GASTROENTEROLOGY CONSULTATION CONSULTING PHYSICIAN: Shira Garrido M.D. CHIEF COMPLAINT: I was asked to see this patient by Dr. Himanshu Jacobson for evaluation of gastrointestinal symptoms. HISTORY OF PRESENT ILLNESS: The patient is a very unfortunate 67-year-old man with multiple medical problems including type 2 diabetes, hypertension, ischemic cardiomyopathy, who came to the hospital due to chest pain. The patient has been seen by Cardiology, but it appears to be more of gastrointestinal . The patient complains of severe retrosternal pyrosis especially after eating. He had a lot of vomiting last night. There was no blood in his emesis, but vomiting occurred 5 or 6 times [id number]. He did not have any endoscopy, but his last colonoscopy was about 4 years ago. He is on proton-pump inhibitor as well as H2 brittany. There are multiple people in the family with various cancers. PAST MEDICAL HISTORY: History of hypertension, prediabetes, asthma, COPD, ischemic cardiomyopathy, seizure disorder, and bipolar disorder. MEDICATIONS: See chart list for details. SOCIAL HISTORY: The patient does not smoke, but he drinks alcohol. He is . FAMILY HISTORY: Positive for father with tongue cancer, mother with breast cancer, and sister with another type of cancer which is not clear to the patient. REVIEW OF SYSTEMS: Otherwise negative. PHYSICAL EXAMINATION: GENERAL: Well-developed obese man, seen in his room. HEENT: Normocephalic and atraumatic. Sclerae anicteric. Oropharynx clear. NECK: Supple. CHEST: Clear to auscultation. CARDIOVASCULAR: Regular rate. ABDOMEN: Soft. Good bowel sounds. EXTREMITIES: Revealed no edema. LABORATORY DATA: Noted. ASSESSMENT: This patient presents with severe pyrosis refractory to acid-blockade as well as nausea, vomiting, and postprandial pain. Given the possible etiology and not responsive to medication, the patient elected to undergo endoscopy tomorrow to evaluate the upper GI tract for ulcers and other pathologies. Indications, risks, alternatives, and possible complications were explained and informed consent was obtained. RECOMMENDATIONS: 1. P.o. diet as tolerated. 2. Continue Pepcid and proton-pump inhibitor. 3. Endoscopy tomorrow. 4. Further recommendations to follow. Thank you for asking me to participate in the care of this patient. Shira Garrido M.D. DR: PRASHANT JOB#: [id number] CC:
[2017-10-19] VITALS (9 sets, daily range): BP systolic 120–148; BP diastolic 41–94
[2017-10-19] MEDS: Albuterol/Ipratropium 3ml neb HHN SCH ×2 (02:10→06:52)
--- NOTE | 2017-10-19 05:49 | General Progress Note ---
Assessment/Plan Problem List: (1) Unstable angina ICD Codes: I20.0 - Unstable angina SNOMED: 7922561, 812855187 (2) Abdominal pain ICD Codes: R10.9 - Unspecified abdominal pain SNOMED: 15229466 (3) Dyspnea ICD Codes: R06.00 - Dyspnea, unspecified SNOMED: 510174982 (4) Asthma exacerbation ICD Codes: J45.901 - Unspecified asthma with (acute) exacerbation SNOMED: 144065536 (5) Shortness of breath ICD Codes: R06.02 - Shortness of breath SNOMED: 979816919 (6) Seizure disorder Status: stable, progressing Assessment/Plan steroids resp rx o2 psych rx PPi rx wt loss d/w pt Subjective ROS Limited/Unobtainable: No Constitutional: Reports: no symptoms HEENT: Reports: no symptoms Cardiovascular: Reports: chest pain Respiratory: Reports: cough, shortness of breath Gastrointestinal/Abdominal: Reports: abdominal pain Genitourinary: Reports: no symptoms Neurologic/Psychiatric: Reports: no symptoms Endocrine: Reports: no symptoms Hematologic/Lymphatic: Reports: no symptoms Allergies: Coded Allergies: No Known Allergies (Verified , 04/30/06) All Systems: reviewed and negative except above Subjective no complaints. +cough, overall feels better. states he was "joking" about using his gun. Objective Last 24 Hour Vital Signs Date Time Temp Pulse Resp B/P (MAP) Pulse Ox O2 Delivery O2 Flow Rate FiO2 10/19/17 02:17 82 20 95 Nasal Cannula 2.0 28 10/19/17 02:10 80 18 94 Nasal Cannula 2.0 10/19/17 00:00 98.0 87 20 137/84 99 Room Air 98.0 10/18/17 23:40 71 10/18/17 23:12 84 20 96 Nasal Cannula 2.0 28 10/18/17 23:06 77 18 93 Nasal Cannula 2.0 28 10/18/17 20:53 155/72 10/18/17 20:39 82 20 94 Nasal Cannula 2.0 28 10/18/17 20:39 82 20 94 Nasal Cannula 2.0 28 10/18/17 20:38 81 20 95 Nasal Cannula 2.0 28 10/18/17 20:33 Nasal Cannula 2.0 28 10/18/17 20:33 95 Nasal Cannula 2.0 28 10/18/17 20:33 81 18 95 Nasal Cannula 2.0 28 10/18/17 20:00 98.0 89 20 155/72 99 Room Air 98.0 10/18/17 19:40 94 10/18/17 16:00 106 10/18/17 16:00 98.0 92 21 142/86 93 Room Air 98.0 10/18/17 15:26 87 18 95 Nasal Cannula 2.0 28 10/18/17 15:18 87 18 95 Nasal Cannula 2.0 28 10/18/17 12:00 83 10/18/17 12:00 98.0 93 18 137/76 93 Room Air 98.0 10/18/17 11:54 84 20 94 Nasal Cannula 2.0 28 10/18/17 11:44 88 18 95 Nasal Cannula 2.0 28 10/18/17 09:52 84 20 95 Nasal Cannula 2.0 28 10/18/17 09:52 84 20 95 Nasal Cannula 2.0 28 10/18/17 08:43 115/87 10/18/17 08:05 94 Nasal Cannula 2.0 28 10/18/17 08:05 86 18 94 Nasal Cannula 2.0 28 10/18/17 08:05 Nasal Cannula 2.0 28 10/18/17 08:05 86 20 95 Nasal Cannula 2.0 28 10/18/17 08:00 97.6 92 20 115/87 93 Room Air 97.6 10/18/17 08:00 76 Intake and Output 10/18/17 10/19/17 19:00 07:00 Intake Total 250 ml Balance 250 ml Intake Oral 250 ml # Voids 3 # Bowel Movements 1 Laboratory Tests 10/18/17 07:05: Sodium Level 140, Potassium Level 4.2, Chloride Level 103, Carbon Dioxide Level 30, Anion Gap 7, Blood Urea Nitrogen 11, Creatinine 1.2, Estimat Glomerular Filtration Rate > 60, Glucose Level 83, Calcium Level 9.7, Total Bilirubin 0.4, Aspartate Amino Transf (AST/SGOT) 21, Alanine Aminotransferase (ALT/SGPT) 22, Alkaline Phosphatase 59, Troponin I 0.000, Total Protein 7.5, Albumin 3.5, Globulin 4.0, Albumin/Globulin Ratio 0.9L Height (Feet): 5 Height (Inches): 7.00 Weight (Pounds): 218 General Appearance: WD/WN, alert Neck: supple Cardiovascular: normal rate, regular rhythm Respiratory/Chest: chest wall non-tender, lungs clear, normal breath sounds Abdomen: normal bowel sounds, non tender, soft, no organomegaly Edema: no edema noted Arm (L), no edema noted Arm (R), no edema noted Leg (L), no edema noted Leg (R), no edema noted Pedal (L), no edema noted Pedal (R), no edema noted Generalized Neurologic: bottom turning lathe tender II-XII grossly normal, alert, oriented x 3 ARIELA BURNETT Oct 19, 2017 05:49
[2017-10-19] MEDS: Advair 250/50 Inhaler - 14 dose INH SCH (06:52)
[2017-10-19] MEDS ORDERED: Propofol 200mg/20ml IV ONE (07:00)
[2017-10-19] MEDS ORDERED: NS 500ML IV ONE (07:10)
--- NOTE | 2017-10-19 07:14 | Pre-Procedure Note/Attestation ---
Pre-Procedure Note/Attestation Complete Prior to Procedure Planned Procedure: not applicable Procedure Narrative: ED Indications for Procedure Pre-Operative Diagnosis: GERD Attestation I attest that I discussed the nature of the procedure; its benefits; risks and complications; and alternatives (and the risks and benefits of such alternatives ), prior to the procedure, with the patient (or the patient's legal hardware supplies sales representative). I attest that, if there was a reasonable possibility of needing a blood transfusion, the patient (or the patient's legal hardware supplies sales representative) was given the [facility] standardized written summary, pursuant to the Isauro Arjun Blood Safety Act ([place] Health and Safety Code # 1645, as amended). I attest that I re-evaluated the patient just prior to the surgery and that there has been no change in the patient's H&P, except as documented below: MAGY LEVI Oct 19, 2017 07:14
--- NOTE | 2017-10-19 07:19 | General Progress Note ---
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 - biopsied - kishan esophagitis Rec: - Will Rx with BID PPI, QID Nystatin - reflux precautions - f/u pathology - Repeat EGD 2 mo Subjective Allergies: Coded Allergies: No Known Allergies (Verified , 04/30/06) Subjective Seen in GI lab uneventful night NPO for EGD H&H improved Objective Last 24 Hour Vital Signs Date Time Temp Pulse Resp B/P (MAP) Pulse Ox O2 Delivery O2 Flow Rate FiO2 10/19/17 06:59 Nasal Cannula 10/19/17 06:53 Nasal Cannula 10/19/17 06:45 Nasal Cannula 10/19/17 06:45 Nasal Cannula 10/19/17 06:45 Nasal Cannula 10/19/17 03:47 98.0 71 20 134/63 99 Room Air 98.0 10/19/17 03:47 66 10/19/17 02:17 82 20 95 Nasal Cannula 2.0 28 10/19/17 02:10 80 18 94 Nasal Cannula 2.0 28 10/19/17 00:00 98.0 87 20 137/84 99 Room Air 98.0 10/18/17 23:40 71 10/18/17 23:12 84 20 96 Nasal Cannula 2.0 28 10/18/17 23:06 77 18 93 Nasal Cannula 2.0 28 10/18/17 20:53 155/72 10/18/17 20:39 82 20 94 Nasal Cannula 2.0 28 10/18/17 20:39 82 20 94 Nasal Cannula 2.0 28 10/18/17 20:38 81 20 95 Nasal Cannula 2.0 28 10/18/17 20:33 Nasal Cannula 2.0 28 10/18/17 20:33 95 Nasal Cannula 2.0 28 10/18/17 20:33 81 18 95 Nasal Cannula 2.0 28 10/18/17 20:00 98.0 89 20 155/72 99 Room Air 98.0 10/18/17 19:40 94 10/18/17 16:00 106 10/18/17 16:00 98.0 92 21 142/86 93 Room Air 98.0 10/18/17 15:26 87 18 95 Nasal Cannula 2.0 28 10/18/17 15:18 87 18 95 Nasal Cannula 2.0 28 10/18/17 12:00 83 10/18/17 12:00 98.0 93 18 137/76 93 Room Air 98.0 10/18/17 11:54 84 20 94 Nasal Cannula 2.0 28 10/18/17 11:44 88 18 95 Nasal Cannula 2.0 28 10/18/17 09:52 84 20 95 Nasal Cannula 2.0 28 10/18/17 09:52 84 20 95 Nasal Cannula 2.0 28 10/18/17 08:43 115/87 10/18/17 08:05 94 Nasal Cannula 2.0 28 10/18/17 08:05 86 18 94 Nasal Cannula 2.0 28 10/18/17 08:05 Nasal Cannula 2.0 28 10/18/17 08:05 86 20 95 Nasal Cannula 2.0 28 10/18/17 08:00 97.6 92 20 115/87 93 Room Air 97.6 10/18/17 08:00 76 Intake and Output 10/18/17 10/19/17 19:00 07:00 Intake Total 250 ml Balance 250 ml Intake Oral 250 ml # Voids 3 1 # Bowel Movements 1 Height (Feet): 5 Height (Inches): 7.00 Weight (Pounds): 218 Objective WDWN AA man NCAT supple Coarse BS RR soft ND NT no edema MAGY LEVI Oct 19, 2017 07:19
[2017-10-19] MEDS ORDERED: fentaNYL 100 mcg/2 mL IV PRN (07:30)
--- NOTE | 2017-10-19 07:31 | Immediate Post-Op Evaluation ---
Immediate Post-Op Evalulation Immediate Post-Op Evalulation Procedure: EGD Date of Evaluation: Oct 19, 2017 Time of Evaluation: 07:47 IV Fluids: 100 Blood Pressure Systolic: 120 Blood Pressure Diastolic: 41 Pulse Rate: 90 Respiratory Rate: 18 O2 Sat by Pulse Oximetry: 95 Pain Score (1-10): 0 Nausea: No Vomiting: No Complications No complication Patient Status: awake, patent, none Hydration Status: adequate Drug: None Isauro Walters MD Oct 19, 2017 07:31
--- NOTE | 2017-10-19 07:31 | Anethesia Preoperative Eval ---
Anesthesia Pre-op PMH/ROS General Date of Evaluation: Oct 19, 2017 Time of Evaluation: 07:00 Anesthesiologist: Romeo ASA Score: ASA 3 Mallampati Score Class I : Soft palate, uvula, fauces, pillars visible Class II: Soft palate, uvula, fauces visible Class III: Soft palate, base of uvula visible Class IV: Only hard plate visible Mallampati Classification: Class III Surgeon: Hema Diagnosis: Abdominal pain Surgical Procedure: EGD Family History: no anesthesia problems Allergies: Coded Allergies: No Known Allergies (Verified , 04/30/06) Medications: see eMAR Past Medical History Cardiovascular: Denies: HTN, CAD, AR, valve dz, arrhythmia, other Pulmonary: Reports: asthma; Denies: COPD, YESICA, other Gastrointestinal/Genitourinary: Reports: GERD, other - Prostate CA; Denies: CRI, ESRD Neurologic/Psychiatric: Reports: other - Seizure d/o; Denies: dementia, CVA, depression/anxiety, TIA Endocrine: Denies: DM, hypothyroidism, steroids, other HEENT: Denies: cataract (L), cataract (R), glaucoma, [place] (L), [place] (R), other Hematology/Immune: Denies: anemia, DVT, bleeding disorder, other Musculoskeletal/Integumentary: Denies: OA, RA, DJD, DDD, edema, other PMH Narrative: Seizures, asthma, prostate CA PSxH Narrative: Facial surgery secondary to trauma, Prostate Anesthesia Pre-op Phys. Exam Physician Exam Last Vital Signs Date Time Temp Pulse Resp B/P (MAP) Pulse Ox O2 Delivery O2 Flow Rate FiO2 10/19/17 06:59 Nasal Cannula 10/19/17 03:47 98.0 71 20 134/63 99 98.0 10/19/17 02:17 2.0 28 Constitutional: NAD Neurologic: CN 2-12 intact Cardiovascular: RRR, no M/R/G Respiratory: CTA Gastrointestinal: S/NT/ND Airway Exam Mallampati Score: Class III MO: full ROM: full Teeth: intact Anesthesia Pre-op A/P Studies Pre-op Studies: EKG - NSR Risk Assessment & Plan Assessment: Class 3 patient for EGD Plan: GA, TIVA Status Change Before Surgery: No Pre-Antibiotics Drug: None Isauro Walters MD Oct 19, 2017 07:31
--- NOTE | 2017-10-19 07:59 | Pulmonology Progress Note ---
Assessment/Plan Assessment/Plan 1. Asthma with acute exacerbation. 2. Shortness of breath. 3. History of seizures. 4. History of headaches. PLAN Continue same for now off Solu-Medrol Nebulized therapy as outlined Oxygen therapy as needed Ambulate as able inhaled steroids as well as long-acting bronchodilators as is Plan for outpatient follow-up including pulmonary function testing and allergy testing impression, plan, and exam edited and reviewed in detail care discussed with RN Subjective Allergies: Coded Allergies: No Known Allergies (Verified , 04/30/06) Subjective Care note and reviewed for procedure today Patient seems stable and not in any distress Objective Last 24 Hour Vital Signs Date Time Temp Pulse Resp B/P (MAP) Pulse Ox O2 Delivery O2 Flow Rate FiO2 10/19/17 07:47 90 18 95 10/19/17 06:59 Nasal Cannula 10/19/17 06:53 Nasal Cannula 10/19/17 06:45 Nasal Cannula 10/19/17 06:45 Nasal Cannula 10/19/17 06:45 Nasal Cannula 10/19/17 03:47 98.0 71 20 134/63 99 Room Air 98.0 10/19/17 03:47 66 10/19/17 02:17 82 20 95 Nasal Cannula 2.0 28 10/19/17 02:10 80 18 94 Nasal Cannula 2.0 28 10/19/17 00:00 98.0 87 20 137/84 99 Room Air 98.0 10/18/17 23:40 71 10/18/17 23:12 84 20 96 Nasal Cannula 2.0 28 10/18/17 23:06 77 18 93 Nasal Cannula 2.0 28 10/18/17 20:53 155/72 10/18/17 20:39 82 20 94 Nasal Cannula 2.0 28 10/18/17 20:39 82 20 94 Nasal Cannula 2.0 28 10/18/17 20:38 81 20 95 Nasal Cannula 2.0 28 10/18/17 20:33 Nasal Cannula 2.0 28 10/18/17 20:33 95 Nasal Cannula 2.0 28 10/18/17 20:33 81 18 95 Nasal Cannula 2.0 28 10/18/17 20:00 98.0 89 20 155/72 99 Room Air 98.0 10/18/17 19:40 94 10/18/17 16:00 106 10/18/17 16:00 98.0 92 21 142/86 93 Room Air 98.0 10/18/17 15:26 87 18 95 Nasal Cannula 2.0 28 10/18/17 15:18 87 18 95 Nasal Cannula 2.0 28 10/18/17 12:00 83 10/18/17 12:00 98.0 93 18 137/76 93 Room Air 98.0 10/18/17 11:54 84 20 94 Nasal Cannula 2.0 28 10/18/17 11:44 88 18 95 Nasal Cannula 2.0 28 10/18/17 09:52 84 20 95 Nasal Cannula 2.0 28 10/18/17 09:52 84 20 95 Nasal Cannula 2.0 28 10/18/17 08:43 115/87 10/18/17 08:05 94 Nasal Cannula 2.0 28 10/18/17 08:05 86 18 94 Nasal Cannula 2.0 28 10/18/17 08:05 Nasal Cannula 2.0 28 10/18/17 08:05 86 20 95 Nasal Cannula 2.0 28 10/18/17 08:00 97.6 92 20 115/87 93 Room Air 97.6 10/18/17 08:00 76 Intake and Output 10/18/17 10/19/17 19:00 07:00 Intake Total 250 ml Balance 250 ml Intake Oral 250 ml # Voids 3 1 # Bowel Movements 1 Objective Well-developed well-nourished male No acute distress No jugular venous distention Lungs with reduced air entry with no wheeze or rhonchi Cardiac exam with normal S1-S2 regular rate rhythm without murmurs rubs gallops Exam on the abdomen is overall benign no normoactive bowel sounds No cyanosis clubbing or edema Neurologically grossly nonfocal and alert Current Medications Medications (Trade) Dose Ordered Sig/Sinai Route PRN Reason Start Time Stop Time Status Last Admin Dose Admin Al Hydroxide/Mg Hydroxide (Mylanta) 30 ml BEFORE MEALS AND HS ORAL 10/17/17 16:30 11/16/17 16:29 10/18/17 20:53 Albuterol/ Ipratropium (Albuterol/ Ipratropium) 3 ml Q4HRT HHN 10/16/17 07:00 10/21/17 06:59 10/19/17 02:10 Aspirin (Ecotrin) 81 mg DAILY ORAL 10/18/17 09:00 11/17/17 08:59 10/18/17 08:41 Calcium Carbonate (Tums) 500 mg THREE TIMES A DAY PRN ORAL HEARTBURN 10/16/17 10:30 11/15/17 10:29 10/18/17 08:49 Famotidine (Pepcid) 20 mg BID ORAL 10/17/17 18:00 11/16/17 17:59 10/18/17 18:05 Fentanyl Citrate (Sublimaze 100 mcg/2 mL) 25 mcg Q10M PRN IV Moderate Pain (Pain Scale 4-6) 10/19/17 07:30 10/19/17 15:00 Gabapentin (Neurontin) 300 mg BID ORAL 10/17/17 18:00 11/16/17 17:59 10/18/17 18:05 Guaifenesin/ Dextromethorphan (Robitussin DM) 10 ml Q4H PRN ORAL For Cough 10/17/17 10:00 11/16/17 09:59 10/17/17 09:40 Heparin Sodium (Porcine) (Heparin 5000 units/ml) 5,000 units EVERY 12 HOURS SUBQ 10/16/17 21:00 11/15/17 20:59 10/18/17 20:52 Levetiracetam (Keppra) 750 mg Q12HR ORAL 10/17/17 21:00 11/16/17 20:59 10/18/17 20:53 Losartan Potassium (Cozaar) 50 mg EVERY 12 HOURS ORAL 10/16/17 21:00 11/15/17 20:59 10/18/17 20:53 Montelukast Sodium (Singulair) 10 mg QPM ORAL 10/16/17 16:30 11/15/17 16:29 10/18/17 17:00 Nystatin (Nystatin) 5 ml QID ORAL 10/19/17 09:00 10/26/17 08:59 Ondansetron HCl (Zofran) 4 mg Q1H PRN IVP Nausea & Vomiting 10/19/17 07:30 10/19/17 15:00 Ondansetron HCl (Zofran) 4 mg Q4H PRN IVP Nausea & Vomiting 10/17/17 02:00 11/16/17 01:59 10/17/17 07:44 Pantoprazole (Protonix) 40 mg TWICE A DAY ORAL 10/19/17 09:00 11/18/17 08:59 Prednisone (predniSONE) 20 mg DAILY ORAL 10/18/17 09:00 11/17/17 08:59 10/18/17 08:43 Quetiapine Fumarate (SEROquel) 300 mg BEDTIME ORAL 10/17/17 21:00 11/16/17 20:59 10/18/17 20:53 Salmeterol Xinafoate/ Fluticasone (Advair 250/50 Diskus) 1 puffs BID INH 10/17/17 18:00 11/16/17 17:59 10/18/17 20:37 Sodium Chloride 1,000 ml @ 10 mls/hr Q24H IVLG 10/19/17 07:24 10/19/17 09:23 ASHLEY LEON Oct 19, 2017 07:59
[2017-10-19] MEDS: Aspirin EC 81mg tab ORAL SCH (08:57)
[2017-10-19] MEDS: Losartan 50mg tab ORAL SCH (08:57)
[2017-10-19] MEDS ORDERED: Nystatin Susp 500,000 units/5ml ORAL SCH (09:00)
[2017-10-19] MEDS: Heparin 5000 units/ml inj SUBQ SCH (09:00)
--- NOTE | 2017-10-19 17:30 | Procedure Note ---
DATE OF PROCEDURE: 10/19/2017 GASTROENTEROLOGY PROCEDURE PROCEDURE: Upper gastrointestinal endoscopy with biopsy. SURGEON: Shira Garrido M.D. ANESTHESIA: Please see the separate anesthesiologist notes for details. PRE-ENDOSCOPIC DIAGNOSIS: Symptoms of gastroesophageal reflux. POST-ENDOSCOPIC DIAGNOSES: 1. Severe gastroesophageal reflux disease with reflux related erosions and shallow ulcerations in the lower esophagus extending to a lesser degree of about 10 cm above the gastroesophageal junction. 2. Proximal esophagus Anel esophageal colonization. 3. Status post random biopsies throughout the esophagus. DESCRIPTION OF PROCEDURE: The procedure, its risks, indications, alternatives, and possible complications were explained and informed consent was obtained. The patient was then sedated in the left lateral decubitus position. A diagnostic upper endoscope was introduced through the oropharynx and advanced to the duodenum. Findings are as listed above. The endoscope was removed. The patient was sent to recovery in good condition. COMPLICATIONS: None. RECOMMENDATIONS: 1. Proton pump inhibitor twice daily. 2. Reflux precautions. 3. Check all biopsies to rule out Razo's esophagus transformation. 4. Repeat endoscopy in two months. 5. Nystatin 4 times a day for 10 days. Shira Garrido M.D. DR: MASOOD JOB#: [id number] CC:
--- NOTE | 2017-10-19 23:44 | General Progress Note ---
Assessment/Plan Assessment/Plan bipolar d/o xeroquel Subjective Date patient seen: Oct 19, 2017 Neurologic/Psychiatric: Reports: anxiety, depressed, emotional problems Allergies: Coded Allergies: No Known Allergies (Verified , 04/30/06) Subjective the pt left the hospital ama. the staff did not contact me Objective Last 24 Hour Vital Signs Date Time Temp Pulse Resp B/P (MAP) Pulse Ox O2 Delivery O2 Flow Rate FiO2 10/19/17 08:57 138/87 10/19/17 08:10 75 18 139/87 96 Room Air 10/19/17 08:00 97.2 73 16 143/91 95 Room Air 97.2 10/19/17 08:00 71 10/19/17 07:50 72 15 148/94 95 Room Air 10/19/17 07:50 Room Air 10/19/17 07:50 95 Room Air 10/19/17 07:47 90 18 95 10/19/17 07:45 70 14 140/83 96 Room Air 10/19/17 07:40 76 17 133/91 100 Simple Mask 6.0 10/19/17 07:37 97.4 84 18 120/41 100 Simple Mask 6.0 97.4 10/19/17 06:59 Nasal Cannula 10/19/17 06:53 Nasal Cannula 10/19/17 06:45 Nasal Cannula 10/19/17 06:45 Nasal Cannula 10/19/17 06:45 Nasal Cannula 10/19/17 03:47 98.0 71 20 134/63 99 Room Air 98.0 10/19/17 03:47 66 10/19/17 02:17 82 20 95 Nasal Cannula 2.0 28 10/19/17 02:10 80 18 94 Nasal Cannula 2.0 28 10/19/17 00:00 98.0 87 20 137/84 99 Room Air 98.0 Intake and Output 10/18/17 10/19/17 19:00 07:00 Intake Total 250 ml Balance 250 ml Intake Oral 250 ml # Voids 3 1 # Bowel Movements 1 Height (Feet): 5 Height (Inches): 7.00 Weight (Pounds): 218 General Appearance: no apparent distress, alert, agitated Demetrius Sandoval M.D. Oct 19, 2017 23:44
--- NOTE | 2017-10-20 02:45 | Progress Note ---
DATE: 10/19/2017 CARDIOLOGY PROGRESS NOTE SUBJECTIVE: The patient is status post upper endoscopy. He was noted to have severe gastroesophageal reflux with esophagitis and some candidal plaques. The patient is hungry and able to tolerate diet. No chest pain or shortness of breath. OBJECTIVE: VITAL SIGNS: Blood pressure 137/84, pulse 87, respiratory rate 20. LUNGS: With good breath sounds. No wheezing. HEART: Regular rhythm and rate. Normal S1, S2. ABDOMEN: Slightly distended, but soft. EXTREMITIES: No edema. IMPRESSION: 1. Chronic obstructive pulmonary disease exacerbation. 2. Obesity. 3. Pleuritic chest pain. 4. Hypertensive heart disease. 5. Gastroesophageal reflux. 6. Esophagitis. PLAN: 1. Await the biopsy results. 2. Continue current cardiovascular regimen. 3. Aspirin prophylaxis. 4. Anti-reflux measures. 5. Weight loss. 6. Taper off steroids. 7. Continue inhaled bronchodilator therapy. 8. Discharge planning. Himanshu Jacobson M.D. DR: Kevin JOB#: [id number] CC:
--- NOTE | 2017-10-20 21:06 | Endoscopy Procedure Note ---
Endoscopy Procedure Note General Indication for Procedure: GERD Procedures Performed: EGD Operative Findings/Diagnosis: GERD Specimen: yes Pt Tolerated Procedure Well: Yes Estimated Blood Loss: none Anesthesia Anesthesiologist: see report Anesthesia: MAC Medications Medication Given: see anesthesia record Inserted Devices Implant(s) used?: No GI Core Measures 50 yrs or older w/o bx or poly: Not Applicable 10yrs. F/U not recommended: Not Applicable If not recommended, why?: MAGY LEVI Oct 20, 2017 21:06
--- NOTE | 2017-10-20 21:06 | Brief Operative Note ---
Immediate Post Operative Note Operative Note Chief Complaint: GERD Pre-op Diagnosis: GERD Procedure: egd Post-op Diagnosis: 1. Severe gastroesophageal reflux disease with reflux related erosions and shallow ulcerations in the lower esophagus extending to a lesser degree of about 10 cm above the gastroesophageal junction. 2. Proximal esophagus Anel esophageal colonization. 3. Status post random biopsies throughout the esophagus Surgeon: concha Anesthesiologist: see report Anesthesia: MAC, moderate sedation Specimen: yes Complications: none Condition: stable Fluids: recorded Estimated Blood Loss: none Drains: none Implant(s) used?: No MAGY LEVI Oct 20, 2017 21:06
--- NOTE | 2017-10-21 14:23 | Discharge Summary ---
Discharge Summary Discharge Summary Discharge Summary DATE OF ADMISSION: 10/16/2017 DATE OF DISCHARGE: 10/19/2017 CONSULTANTS: Dr. Keon Garrido BRIEF HOSPITAL COURSE: Patient is a 67-year-old male with history of prediabetes, hypertension, asthma/ COPD and ischemic cardiomyopathy presented to ED complaining of chest pain. On the morning of admission, he developed substernal chest pain with shortness of breath, he presented to emergency room. On evaluation, initial vital signs were stable. Cardiac enzymes were negative. He was noted to be hypokalemic. Chest x-ray showed pulmonary vascular congestion. He was given breathing treatment, he was given aspirin and intravenous steroids. He was then admitted for evaluation of shortness of breath, congestive heart failure, and COPD exacerbation. He was given nebulizer therapy and oxygen therapy as needed. He was eventually taken off Solu-Medrol and was given inhaled steroid as well as long-acting bronchodilator. He complained of severe retrosternal pyrosis especially after eating and had vomiting. There was no hematemesis. He was given Pepcid and proton pump inhibitor. He underwent EGD on 10/19/[address] Garrido. Findings showed severe gastroesophageal reflux disease with reflux related erosions and shallow ulcerations in the lower esophagus extending to a lesser degree of about 10 cm above the gastroesophageal junction. There was proximal esophageal Candidal colonization. She prescribed Nystatin 4 times daily for 10 days, and Protonix was increased to twice a day. Full treatment was not carried out as patient left AGAINST MEDICAL ADVICE. FINAL DIAGNOSES: Acute COPD exacerbation Obesity Pleuritic chest pain Hypertensive heart disease GERD Esophagitis DISPOSITION: Patient left AMA I have been assigned to dictate discharge summary on this account, and I was not involved in the patient's management. Svitlana Carvajal NP Oct 21, 2017 14:23
== END 2017-10-19 10:04 | disposition left against medical advice (07) | DRG 140 ==
LOC: EDUNIT# 23:34 → EDBD 23:34 → EMR 23:50 → 2E 10-16 02:00 → EDBEDREQ 10-16 02:28
PROC: 0DB28ZX Excision of Middle Esophagus, Via Natural or Artificial Opening Endoscopic, Diagnostic (ICD-10-PCS; 2017-10-19)
PROC: 0DB78ZX Excision of Stomach, Pylorus, Via Natural or Artificial Opening Endoscopic, Diagnostic (ICD-10-PCS; 2017-10-19)
PROC: 0DB18ZX Excision of Upper Esophagus, Via Natural or Artificial Opening Endoscopic, Diagnostic (ICD-10-PCS; 2017-10-19)
PROC: 0DB38ZX Excision of Lower Esophagus, Via Natural or Artificial Opening Endoscopic, Diagnostic (ICD-10-PCS; principal; 2017-10-19 07:19)
DX: J44.1 Chronic obstructive pulmonary disease with (acute) exacerbation (principal); I11.0 Hypertensive heart disease with heart failure; I50.9 Heart failure, unspecified; I20.0 Unstable angina; J98.01 Acute bronchospasm; G40.909 Epilepsy, unspecified, not intractable, without status epilepticus; R10.9 Unspecified abdominal pain; R12 Heartburn; R11.2 Nausea with vomiting, unspecified; I25.5 Ischemic cardiomyopathy; Z85.46 Personal history of malignant neoplasm of prostate; E78.5 Hyperlipidemia, unspecified; E87.6 Hypokalemia; I51.3 Intracardiac thrombosis, not elsewhere classified; F31.9 Bipolar disorder, unspecified; K21.9 Gastro-esophageal reflux disease without esophagitis; R07.89 Other chest pain; K27.9 Peptic ulcer, site unspecified, unspecified as acute or chronic, without hemorrhage or perforation; K20.9 Esophagitis, unspecified; R07.81 Pleurodynia
CPT/HCPCS: 36415; 71045; 76700; 80053; 80185; 80299; 80307; 82550; 82553; 82962; 83735; 84443; 84484; 85025; 93005; 93306; 94003; 94150; 94640; 94664; 94760; 99285; J2405; J7620; J8499